=== PATIENT | female | born 1995 | race Asian ===

== ENCOUNTER 2016-06-05 19:14 | Emergency (ER) | payer MEDICAID ==
[~2016-06-05] VITALS: Ht 160 cm; Wt 75.7 kg
[~2016-06-05 19:14] MED LIST: [UNRECOGNIZED DRUG - OTHER] PO
--- NOTE | 2016-06-05 19:25 | NUR ---
Patient to ER bed H1 to gown for evaluation. Side rails up.
--- NOTE | 2016-06-05 19:26 | NUR ---
Lili Driver [employer] at bedside examining patient
--- NOTE | 2016-06-05 19:26 | NUR ---
Pt brought by self,A&Ox4, pt c/o discomfort and swellling on R eye, visual acuity 20/30 both eyes, skin pink and warm, cap refill <3, VSS
[2016-06-05 19:31] VITALS: BP 121/91; PULSE 89; RESP 16; TEMP 98; O2SAT 98
[2016-06-05 19:58] VITALS: BP 121/91; PULSE 89; RESP 16; TEMP 98; O2SAT 98
--- NOTE | 2016-06-05 20:00 | NUR ---
Patient given written and verbal discharge instructions and verbalizes understanding. ER MD discussed with patient the results and treatment provided. Patient in stable condition. ID arm band removed. Rx of Polytrim and Loratadine given. Patient educated on pain management and to follow up with PMD. Pain Scale . Opportunity for questions provided and answered.
== END 2016-06-05 20:00 | disposition home or self-care (01) ==
LOC: SED 19:14
DX: H10.31 Unspecified acute conjunctivitis, right eye (principal); J30.9 Allergic rhinitis, unspecified
CPT/HCPCS: 99283

== ENCOUNTER 2017-03-16 17:11 | Emergency (ER) | payer MEDICAID ==
[~2017-03-16] VITALS: Ht 162.6 cm; Wt 81.6 kg
[2017-03-16 17:30] VITALS: BP_SYST 144
--- NOTE | 2017-03-16 17:34 | NUR ---
Patient triaged and placed in waiting room. VSS and patient appears in no acute distress at this time. Accompanied by FAMILY, awaiting available bed, and MD notified of need for MSE.
--- NOTE | 2017-03-16 20:04 | NUR ---
PT AMBULATORY TO BED 3 FOR EVAL
--- NOTE | 2017-03-16 20:15 | NUR ---
Patient to ER via triage with c/o cough and fever since this morning. Patient denies nausea, vomiting, constipation, and diarrhea. Patient took DayQuil OTC for fever at home. Patient is awake, alert and oriented in no acute distress. Patient able to ambulate to room with slow, steady gait in no acute distress. Awaiting evaluation by ER MD, will continue to observe and assess.
--- NOTE | 2017-03-16 20:30 | NUR ---
Dr Driver at bedside to evaluate patient.
[2017-03-16] MEDS ORDERED: OSELTAMIVIR PHOSPHATE 75 MG CAPSULE PO ONE (20:45)
[2017-03-16 21:00] VITALS: BP_SYST 114
--- NOTE | 2017-03-16 21:00 | NUR ---
Patient given written and verbal discharge instructions and verbalizes understanding. ER MD discussed with patient the results and treatment provided. Patient in stable condition. ID arm band removed. Rx of Promethazine with Codeine, Tamiflu, Ibuprofen given. Patient educated on pain management and to follow up with PMD. Pain Scale 0. Opportunity for questions provided and answered. Patient left ER ambulating with slow, steady gait in no acute distress. No adverse reaction noted to medication.
== END 2017-03-16 21:00 | disposition home or self-care (01) ==
LOC: SED 17:11
DX: J09.X2 Influenza due to identified novel influenza A virus with other respiratory manifestations (principal); I10 Essential (primary) hypertension
CPT/HCPCS: 36415; 86710; 99284; G9035

== ENCOUNTER 2017-05-09 14:20 | Emergency (ER) | payer MEDICAID ==
[~2017-05-09] VITALS: Ht 160 cm; Wt 77.1 kg
[2017-05-09 14:24] VITALS: BP_SYST 147
[2017-05-09] MEDS ORDERED: IBUPROFEN 800 MG TABLET PO ONE (14:45)
[2017-05-09] MEDS ORDERED: DIPH-TET-PERTUS Vaccine 0.5 ML VIAL (ADACEL) IM ONE (14:45)
[2017-05-09] MEDS ORDERED: BACITRACIN 1 GM OINT TP ONE (14:45)
[2017-05-09] MEDS ORDERED: AMOXICILLIN/CLAVULANATE POTASSIUM 875 MG TABLET PO ONE (14:45)
[2017-05-09 15:16] VITALS: BP_SYST 147
[2017-05-09] MEDS ORDERED: ACETAMINOPHEN 120 MG SUPP.RECT RC ONE (20:07)
== END 2017-05-09 15:13 | disposition home or self-care (01) ==
LOC: SED 14:20
DX: S01.511A Laceration without foreign body of lip, initial encounter (principal); I10 Essential (primary) hypertension; W54.0XXA Bitten by dog, initial encounter; Y93.89 Activity, other specified; Y92.89 Other specified places as the place of occurrence of the external cause; Y99.8 Other external cause status
CPT/HCPCS: 90715; 99284

== ENCOUNTER 2018-05-30 14:29 | Emergency (ER) | payer MEDICAID ==
[~2018-05-30] VITALS: Ht 160 cm; Wt 72.6 kg
[2018-05-30 14:30] VITALS: BP_SYST 126
--- NOTE | 2018-05-30 15:19 | NUR ---
Patient to ER bed 04 to gown for evaluation. Side rails up.
--- NOTE | 2018-05-30 15:25 | NUR ---
ER at bedside examining patient.
[2018-05-30] MEDS ORDERED: IBUPROFEN 600 MG TABLET PO ONE (15:30)
--- NOTE | 2018-05-30 15:30 | NUR ---
Note jana in EDM - 05/30/18 at 1608 by PAPI Patient presented to ER with ankle pain. Patient arrived to ER in wheelchair with family member. Patient A&Ox4, afebrile, respirations equal bilat. Patient states she injured ankle today playing basketball at gym,at [employer] [facility]. Patient states while playing basketball she jumped and while returning to the ground from jump ankle twisted and pt landed all body weight on ankle causing injury to right ankle.
--- NOTE | 2018-05-30 15:30 | NUR ---
Note jana in EDM - 05/30/18 at 1749 by KYA Patient presented to ER with ankle pain. Patient arrived to ER in wheelchair with family member. Patient A&Ox4, afebrile, respirations equal bilat. Patient denies N/V/D. Patient states she injured ankle today playing basketball at gym,at [email or web address]. Patient states while playing basketball she jumped and while returning to the ground from jump ankle twisted and pt landed all body weight on ankle causing injury to right ankle.
--- NOTE | 2018-05-30 15:30 | NUR ---
Patient presented to ER with ankle pain. Patient arrived to ER in wheelchair with family member. Patient A&Ox4, afebrile, respirations equal bilat. Patient states she injured ankle today playing basketball at gym,at [facility]. Patient states while playing basketball she jumped and while returning to the ground from jump ankle twisted and pt landed all body weight on ankle causing injury to right ankle.
--- NOTE | 2018-05-30 15:30 | NUR ---
Patient presented to ER with Right ankle pain. Patient arrived to ER in wheelchair with family member. Patient A&Ox4, afebrile, respirations equal bilat. Patient denies N/V/D. Patient states she injured ankle today playing basketball at gym,at [employer]. Patient states while playing basketball she jumped and while returning to the ground from jump ankle twisted and pt landed all body weight on ankle causing injury to right ankle.
--- NOTE | 2018-05-30 16:08 | NUR ---
Patient given written and verbal discharge instructions and verbalizes understanding. ER MD discussed with patient the results and treatment provided. Patient in stable condition. ID arm band removed. Rx of Clotroimazole given. Patient educated on pain management and to follow up with PMD. Pain Scale 0/10 . Opportunity for questions provided and answered. Medication side effect fact sheet provided.
[2018-05-30 16:09] VITALS: BP_SYST 126
== END 2018-05-30 16:08 | disposition home or self-care (01) ==
LOC: SED 14:29
DX: M79.671 Pain in right foot (principal); I10 Essential (primary) hypertension; X50.9XXA Other and unspecified overexertion or strenuous movements or postures, initial encounter; Y93.67 Activity, basketball; Y92.89 Other specified places as the place of occurrence of the external cause; Y99.8 Other external cause status
CPT/HCPCS: 99283

== ENCOUNTER 2018-07-23 16:14 | Emergency (ER) | payer MEDICAID ==
[~2018-07-23] VITALS: Ht 160 cm; Wt 74.8 kg
[2018-07-23 16:18] VITALS: BP_SYST 151
--- NOTE | 2018-07-23 16:24 | NUR ---
Patient to ER bed 3 to gown for evaluation. Side rails up. Report given to Regina MONTOYA.
--- NOTE | 2018-07-23 16:39 | NUR ---
Pt is AAO x4 ambulated to ED with complaints of chest pain in center of chest. Pain started this morning upon waking up. Pt denies cough or recently being sick. Pt states that pain is currently 5/10.
--- NOTE | 2018-07-23 16:44 | NUR ---
ER Dr. Jameson at bedside examining patient.
[2018-07-23 17:29] LABS: BASOPHILS % (AUTO) 0.3 % (0.0-2.0); EOSINOPHILS # (AUTO) 0.1 K/uL (0.0-0.4); EOSINOPHILS % (AUTO) 1.8 % (0.0-4.0); HEMOGLOBIN 13.9 g/dL (12.0-16.0); LYMPHOCYTES # (AUTO) 2.9 K/uL (1.0-5.5); LYMPHOCYTES % (AUTO) 50.8 % (20.5-51.5); MEAN CORPUSCULAR HEMOGLOBIN 30 pg (27-31); MEAN CORPUSCULAR HGB CONC 34 % (32-36); MEAN CORPUSCULAR VOLUME 87 fL (79.0-98.0); MONOCYTES # (AUTO) 0.5 K/uL (0.0-1.0); MONOCYTES % (AUTO) 8.4 % (1.7-9.3); NEUTROPHILS # (AUTO) 2.2 K/uL (1.8-7.7); NEUTROPHILS % (AUTO) 38.7 % (40.0-70.0); PLATELET COUNT (AUTO) 197 K/uL (130-430); RED BLOOD CELL COUNT(AUTO) 4.69 MIL/uL (4.2-6.2); RED CELL DISTRIBUTION WIDTH 12.9 % (9.0-15.0); WHITE BLOOD COUNT (AUTO) 5.7 K/uL (4.8-10.8)
[2018-07-23 18:01] LABS: CALCIUM 9.2 mg/dL (8.4-11.0); CREATININE 0.86 mg/dL (0.55-1.30); POTASSIUM 4.1 mmol/L (3.5-5.1)
[2018-07-23 18:06] LABS: ALBUMIN 3.7 g/dL (3.4-4.8); TOTAL BILIRUBIN 0.4 mg/dL (0.0-1.0)
[2018-07-23 18:09] LABS: PROTHROMBIN TIME 10.2 SECS (9.5-12.5)
[2018-07-23] MEDS ORDERED: ASPIRIN 81 MG TAB.CHEW PO ONE (19:00)
--- NOTE | 2018-07-23 19:06 | NUR ---
Unable to discharge pt and give discharge information due to pt eloping
--- NOTE | 2018-07-23 19:07 | NUR ---
Pt was not present in ED room 3, searched the ED department and [facility] and was unable to locate pt. Pt eloped from ED at this time.
== END 2018-07-23 19:15 | disposition left against medical advice (07) ==
LOC: SED 16:14
DX: R07.89 Other chest pain (principal); I10 Essential (primary) hypertension
CPT/HCPCS: 36415; 71045; 80053; 81025; 83880; 84484; 85025; 85379; 85610-TC; 85730-TC; 99284

== ENCOUNTER 2018-07-24 07:49 | Emergency (ER) | payer MEDICAID ==
[~2018-07-24] VITALS: Ht 160 cm; Wt 74.8 kg
[2018-07-24 07:49] VITALS: BP_SYST 140
[2018-07-24] MEDS ORDERED: MAG HYDROX/AL HYDROX/SIMETH 30 ML, BELLADONNA ALKALOIDS/PHENOBARB 10 ML, LIDOCAINE VISC... PO ONE ×3 (08:15)
[2018-07-24 09:50] VITALS: BP_SYST 140
== END 2018-07-24 09:50 | disposition home or self-care (01) ==
LOC: SED 07:49
DX: K59.00 Constipation, unspecified (principal); K21.9 Gastro-esophageal reflux disease without esophagitis; I10 Essential (primary) hypertension
CPT/HCPCS: 76700; 99284; J2001

== ENCOUNTER 2019-02-23 16:44 | Emergency (ER) | payer MEDICAID ==
[~2019-02-23] VITALS: Ht 160 cm; Wt 73.9 kg
--- NOTE | 2019-02-23 17:15 | NUR ---
Patient to ER bed 4 to gown for evaluation. Side rails up. Assumed care.
--- NOTE | 2019-02-23 17:17 | NUR ---
Patient arrived via POV, AAOx4, and ambulatory with steady gait. Patients stated c/c of epigastric discomfort, burning sensation upward behind sternum. Patient states she has previously had an episode just like this, and was given a GI cocktail with relief. Patient states onset for this episode was last night, and worsening today. She had had 1-2 vomiting. No vomiting at this time. Will continue to follow up and monitor.
--- NOTE | 2019-02-23 17:17 | NUR ---
TANENR Bone at bedside examining patient.
[2019-02-23] MEDS ORDERED: MAG HYDROX/AL HYDROX/SIMETH 30 ML, DICYCLOMINE HCL 20 MG, LIDOCAINE VISCOUS 2% 15ML (PO... PO ONE ×3 (17:45)
[2019-02-23 18:26] LABS: BASOPHILS % (AUTO) 0.4 % (0.0-2.0); EOSINOPHILS # (AUTO) 0.1 K/uL (0.0-0.4); EOSINOPHILS % (AUTO) 1.2 % (0.0-4.0); HEMATOCRIT 41.9 % (36-48); LYMPHOCYTES # (AUTO) 1.9 K/uL (1.0-5.5); LYMPHOCYTES % (AUTO) 30.2 % (20.5-51.5); MEAN CORPUSCULAR HEMOGLOBIN 30 pg (27-31); MEAN CORPUSCULAR HGB CONC 33 % (32-36); MEAN CORPUSCULAR VOLUME 90 fL (79.0-98.0); MONOCYTES # (AUTO) 0.5 K/uL (0.0-1.0); MONOCYTES % (AUTO) 7.8 % (1.7-9.3); NEUTROPHILS # (AUTO) 3.8 K/uL (1.8-7.7); NEUTROPHILS % (AUTO) 60.4 % (40.0-70.0); PLATELET COUNT (AUTO) 153 K/uL (130-430); RED BLOOD CELL COUNT(AUTO) 4.69 MIL/uL (4.2-6.2); WHITE BLOOD COUNT (AUTO) 6.3 K/uL (4.8-10.8)
[2019-02-23 18:41] LABS: CALCIUM 8.7 mg/dL (8.4-11.0); CREATININE 0.79 mg/dL (0.55-1.30); POTASSIUM 3.6 mmol/L (3.5-5.1)
[2019-02-23 18:47] LABS: ALBUMIN 3.9 g/dL (3.4-4.8); TOTAL BILIRUBIN 0.6 mg/dL (0.0-1.0)
[2019-02-23 19:28] VITALS: BP_SYST 124
--- NOTE | 2019-02-23 19:28 | NUR ---
Patient given written and verbal discharge instructions and verbalizes understanding. ER MD discussed with patient the results and treatment provided. Patient in stable condition. ID arm band removed. Rx of Bentyl, Omeprazole, Zofran, Midol given. Patient educated on pain management and to follow up with PMD. Pain Scale 0/10. Opportunity for questions provided and answered. Medication side effect fact sheet provided.
== END 2019-02-23 19:28 | disposition home or self-care (01) ==
LOC: SED 16:44
DX: R10.13 Epigastric pain (principal); K21.9 Gastro-esophageal reflux disease without esophagitis; I10 Essential (primary) hypertension; E70.21 Tyrosinemia; N94.3 Premenstrual tension syndrome; Z79.899 Other long term (current) drug therapy
CPT/HCPCS: 36415; 80053; 81025; 83690; 85025; 99283; J2001; J7030

== ENCOUNTER 2019-02-23 23:47 | Emergency (ER) | payer MEDICAID ==
[~2019-02-23] VITALS: Ht 160 cm; Wt 73.9 kg
[2019-02-24 00:11] VITALS: BP_SYST 129
--- NOTE | 2019-02-24 00:16 | NUR ---
Pt placed to ER waiting room with m other in stable condition.
--- NOTE | 2019-02-24 00:45 | NUR ---
Pt placed to ER bed 02 with parents. Report given to LINDSAY Elizabeth.
--- NOTE | 2019-02-24 00:45 | NUR ---
HERE WITH A CHIEF COMPLAINT OF BURNING EPIGASTRIC PAIN RADIATING TO THE CHEST, NAUSEA,VOMITING. NAUSEA,VOMITING RESOLVED AT THIS TIME.
[2019-02-24] MEDS ORDERED: MORPHINE 4 MG/ML INJ. SYRINGE IM ONE (01:00)
--- NOTE | 2019-02-24 01:05 | NUR ---
ER-MD CAME BY BEDSIDE TO EVALUATE PT.
[2019-02-24] MEDS ORDERED: MORPHINE 4 MG/ML INJ. SYRINGE IVP ONE (01:15)
[2019-02-24] MEDS ORDERED: NACL 0.9% 1,000 ML IV ONE (01:15)
[2019-02-24] MEDS ORDERED: ONDANSETRON HCL 4 MG/2 ML VIAL IVP ONE (01:15)
--- NOTE | 2019-02-24 01:21 | NUR ---
GAUGE 18 IV LINE ESTABLISHED TO THE RIGHT AC. NS 1 LITER BOLUS,MORPHINE 4 MG IVP AND ZOFRAN 4 MG IVP GIVEN ORDERED.
--- NOTE | 2019-02-24 01:52 | NUR ---
ER-MD BACK AT BEDSIDE TO RE-EVALUATE AND DISCUSS PLAN OF CARE WITH PATIENT AND FAMILY. PT. FOR DISCHARGE HOME. PT. ASLEEP, NO PAIN OR DISCOMFORT NOTED AT THIS TIME.
--- NOTE | 2019-02-24 02:17 | NUR ---
DISCHARGED STABLE AND IMPROVED. PRESCRIPTION,VERBAL AND WRITTEN AFTERCARE INSTRUCTIONS GIVEN.VERBALIZED UNDERSTANDING.
[2019-02-24 02:28] VITALS: BP_SYST 128
== END 2019-02-24 02:28 | disposition home or self-care (01) ==
LOC: SED 23:47
DX: R10.13 Epigastric pain (principal); R11.2 Nausea with vomiting, unspecified
CPT/HCPCS: 96361; 96374; 96375; 99283; J2270; J2405; J7030